=== PATIENT | male | born 1980 | race Caucasian/White ===

== ENCOUNTER 2019-12-26 13:26 | Inpatient (IN) | payer MEDICAID, OTHER ==
[~2019-12-26] VITALS: Ht 177.8 cm; Wt 95.3 kg
[~2019-12-26 13:26] MED LIST: BACI30OI6 TP; BUPR-47 PO; FLUO-191 PO; GABA-533 PO; HALO10 PO; NALT50TA PO; TRIA15CR49 TP; TRIH2TAB3 PO
[2019-12-26] MEDS ORDERED: PRAZ1 PO (13:57)
[2019-12-26] MEDS ORDERED: BUSP10TA23 PO (13:57)
[2019-12-26] MEDS ORDERED: BUPR8TAB4 SL (13:57)
[2019-12-26] MEDS ORDERED: OLAN10TA3 PO (13:57)
[2019-12-26 14:40] LABS: AMPHET/METH SCREEN,URINE NEGATIVE (NEGATIVE); BARBITURATE SCREEN, URINE NEGATIVE (NEGATIVE); BENZODIAZEPINES SCREEN,URINE NEGATIVE (NEGATIVE); CANNABINOID SCREEN,URINE NEGATIVE (NEGATIVE); COCAINE SCREEN,URINE NEGATIVE (NEGATIVE); METHADONE SCREEN, URINE NEGATIVE (NEGATIVE); OPIATE SCREEN,URINE NEGATIVE (NEGATIVE)
[2019-12-26 14:41] LABS: PHENCYCLIDINE SCREEN,URINE NEGATIVE (NEGATIVE)
[2019-12-26 14:44] LABS: BASOPHILS % (AUTO) 1.1 % (0.0-2.0); EOSINOPHILS % (AUTO) 2.9 % (1.0-6.0); HEMATOCRIT 43.6 % (41-53); HEMOGLOBIN 14.9 g/dL (13.5-17.5); LYMPHOCYTES # (AUTO) 3.2 K/uL (1.0-4.8); LYMPHOCYTES % (AUTO) 36.6 % (22.0-44.0); MEAN CORPUSCULAR HEMOGLOBIN 30.5 pg (26.0-34.0); MEAN CORPUSCULAR HGB CONC 34.1 G/dL (31.0-37.0); MEAN CORPUSCULAR VOLUME 89 fL (80-100); MONOCYTES % (AUTO) 11.6 % (2.0-9.0); NEUTROPHILS # (AUTO) 4.2 K/uL (1.8-7.7); NEUTROPHILS % (AUTO) 47.8 % (40.0-70.0); PLATELET COUNT (AUTO) 219 K/uL (150-450); RED BLOOD CELL COUNT(AUTO) 4.88 MIL/uL (4.50-5.90)
[2019-12-26 14:53] LABS: ANION GAP 13 mmol/L (8-16); CALCIUM, TOTAL 9.2 mg/dL (8.8-10.5); CARBON DIOXIDE 25 mmol/L (22-29); CHLORIDE 101 mmol/L (98-107); GLOMERULAR FILTR. RATE CALC > 60 mL/min (>60); GLUCOSE,RANDOM 141 mg/dL (70-110); POTASSIUM 3.7 mmol/L (3.5-5.1); SODIUM SERUM 139 mmol/L (136-145); UREA NITROGEN, BLOOD 12 mg/dL (7-18)
[2019-12-26 14:55] LABS: SALICYLATE 1.1 mg/dL (2.8-20.0)
[2019-12-26 14:56] LABS: ACETAMINOPHEN < 2 mcg/mL (10-30)
[2019-12-26] MEDS ORDERED: MAGNESIUM HYDROXIDE SUSPENSION 30 ML UDCUP PO PRN (15:30)
[2019-12-26] MEDS ORDERED: MAG HYDROX/AL HYDROX/SIMETH ES 30 ML SUSPENSION UDCUP PO PRN ×2 (15:30→19:30)
[2019-12-26] MEDS ORDERED: OLANZapine 5 MG RAPDIS TABLET PO PRN (15:30)
[2019-12-26] MEDS ORDERED: HydrOXYzine PAMOATE 50 MG CAPSULE PO PRN ×2 (15:30→19:30)
[2019-12-26] MEDS ORDERED: ACETAMINOPHEN 325 MG TABLET PO PRN (15:30)
[2019-12-26] MEDS ORDERED: LOPERAMIDE HCL 2 MG CAPSULE PO PRN (15:30)
[2019-12-26] MEDS ORDERED: TUBERCULIN, PURIFIED PROTEIN DERIVATIVE 5 TU/0.1 ML SYRINGE ID ONE (15:30)
[2019-12-26] MEDS ORDERED: PROMETHAZINE HCL 25 MG TABLET PO PRN (15:30)
[2019-12-26] MEDS ORDERED: GuaiFENesin/D-METHORPHAN [SUGAR-FREE] 200-20MG/10 ML SYRUP UDCUP PO PRN (15:30)
[2019-12-26] MEDS ORDERED: GABA-533 PO (15:49)
[2019-12-26] MEDS ORDERED: FLUO-191 PO (15:49)
[2019-12-26 18:17] VITALS: BP 143/76
[2019-12-26 18:22] VITALS: BP 143/76
[2019-12-26] MEDS: THIAMINE 100 MG TABLET PO SCH (18:27)
[2019-12-26] MEDS: LORazepam 2 MG TABLET PO PRN (18:27)
[2019-12-26] MEDS: BusPIRone HCL 10 MG TABLET PO SCH (18:27)
[2019-12-26] MEDS ORDERED: IBUPROFEN 600 MG TABLET PO PRN (19:30)
[2019-12-26] MEDS ORDERED: CloNIDine HCL 0.1 MG TABLET PO PRN (19:30)
[2019-12-26] MEDS: PRAZOSIN HCL 1 MG CAPSULE PO SCH (20:05)
[2019-12-26] MEDS: OLANZapine 5 MG RAPDIS TABLET PO SCH (20:05)
[2019-12-26] MEDS: ZOLPIDEM TARTRATE 10 MG TABLET PO PRN (20:05)
[2019-12-26] MEDS: CloNIDine HCL 0.1 MG TABLET PO SCH (21:02)
[2019-12-27] MEDS: CloNIDine HCL 0.1 MG TABLET PO SCH ×4 (05:43→20:51)
[2019-12-27] MEDS: LORazepam 2 MG TABLET PO PRN ×4 (05:48→20:30)
[2019-12-27 06:29] VITALS: BP 132/74
[2019-12-27] MEDS: DISULFIRAM 250 MG TABLET PO SCH (08:13)
[2019-12-27] MEDS: THIAMINE 100 MG TABLET PO SCH ×2 (08:13→16:00)
[2019-12-27] MEDS: FOLIC ACID 1 MG TABLET PO SCH (08:14)
[2019-12-27] MEDS: BusPIRone HCL 10 MG TABLET PO SCH ×3 (08:14→16:00)
[2019-12-27] MEDS: MULTIVITAMINS WITH MINERALS, THERAPEUTIC TABLET PO SCH (08:14)
[2019-12-27 08:23] VITALS: BP 117/64
[2019-12-27 08:44] LABS: FREE T4 (FREE THYROXINE) 0.84 ng/dL (0.76-1.46); THYROID STIMULATING HORMONE 4.35 uIU/mL (0.36-3.74)
[2019-12-27 08:45] LABS: HEMOGLOBIN A1C 5.7 % (3.8-5.6)
[2019-12-27] MEDS: GABAPENTIN 400 MG CAPSULE PO SCH ×2 (16:00→20:51)
[2019-12-27 16:02] VITALS: BP 117/68
[2019-12-27] MEDS: PRAZOSIN HCL 1 MG CAPSULE PO SCH (20:51)
[2019-12-27] MEDS: OLANZapine 5 MG RAPDIS TABLET PO SCH (20:51)
[2019-12-27] MEDS: ZOLPIDEM TARTRATE 10 MG TABLET PO PRN (20:51)
[2019-12-28 04:26] VITALS: BP 115/67
[2019-12-28] MEDS: CloNIDine HCL 0.1 MG TABLET PO SCH ×2 (05:33→12:09)
[2019-12-28] MEDS: LORazepam 2 MG TABLET PO PRN ×2 (07:11→12:09)
[2019-12-28 08:33] VITALS: BP 115/69
[2019-12-28] MEDS: BusPIRone HCL 10 MG TABLET PO SCH ×2 (08:34→12:09)
[2019-12-28] MEDS: DISULFIRAM 250 MG TABLET PO SCH (08:34)
[2019-12-28] MEDS: GABAPENTIN 400 MG CAPSULE PO SCH ×2 (08:35→12:09)
[2019-12-28] MEDS: FOLIC ACID 1 MG TABLET PO SCH (08:35)
[2019-12-28] MEDS: MULTIVITAMINS WITH MINERALS, THERAPEUTIC TABLET PO SCH (08:35)
[2019-12-28] MEDS: THIAMINE 100 MG TABLET PO SCH (08:35)
[2019-12-28] MEDS ORDERED: FLUoxetine HCL 20 MG CAPSULE PO SCH (09:00)
[2019-12-28] MEDS ORDERED: BUPRENORPHINE HCL/NALOXONE HCL 8-2 MG SUBLINGUAL TABLET SL SCH (11:15)
[2019-12-28] MEDS ORDERED: GABA-1201 PO (15:22)
[2019-12-28] MEDS ORDERED: BUSP10TA23 PO (15:22)
[2019-12-28] MEDS ORDERED: OLAN5TAB30 PO (15:22)
[2019-12-28] MEDS ORDERED: FLUO-191 PO (15:22)
[2019-12-28] MEDS ORDERED: DISU250 PO (15:22)
[2019-12-28] MEDS ORDERED: PRAZ1 PO (15:22)
[2019-12-28] MEDS ORDERED: CLON0.1T83 PO (16:32)
== END 2019-12-28 16:10 | disposition home or self-care (01) | DRG 885 ==
LOC: EMS 13:28 → B3A 17:49
PROVIDERS: ADMIT Psychiatry & Neurology Psychiatry; ATTEND Psychiatry & Neurology Psychiatry
DX: F25.1 Schizoaffective disorder, depressive type (principal); B19.20 Unspecified viral hepatitis C without hepatic coma; F11.20 Opioid dependence, uncomplicated; Z59.0 Homelessness; S61.512A Laceration without foreign body of left wrist, initial encounter; X78.8XXA Intentional self-harm by other sharp object, initial encounter; Y93.89 Activity, other specified; Y92.89 Other specified places as the place of occurrence of the external cause; Y99.8 Other external cause status; Z91.5 Personal history of self-harm; Z91.19 Patient's noncompliance with other medical treatment and regimen; F17.210 Nicotine dependence, cigarettes, uncomplicated; Z91.14 Patient's other noncompliance with medication regimen; I10 Essential (primary) hypertension; F41.9 Anxiety disorder, unspecified
CPT/HCPCS: 83036; 84439; 84443; 86592; G0480; G0481

== ENCOUNTER 2020-02-02 20:17 | Inpatient (IN) | payer MEDICAID ==
[~2020-02-02] VITALS: Ht 180.3 cm; Wt 89.2 kg
[~2020-02-02 20:17] MED LIST changes: -BACI30OI6 TP; -BUPR-47 PO; +BUSP10TA23 PO; +CLON0.1T83 PO; +DISU250 PO; +GABA-1201 PO; -GABA-533 PO; -HALO10 PO; -NALT50TA PO; +OLAN5TAB30 PO; +PRAZ1 PO; -TRIA15CR49 TP; -TRIH2TAB3 PO
[2020-02-02] MEDS ORDERED: GABA-1201 PO (20:53)
[2020-02-02] MEDS ORDERED: PRAZ1 PO (20:53)
[2020-02-02] MEDS ORDERED: BUSP10TA23 PO (20:53)
[2020-02-02] MEDS ORDERED: DISU500T PO (20:53)
[2020-02-02] MEDS ORDERED: FLUO-191 PO (20:53)
[2020-02-02] MEDS ORDERED: OLAN7.5T2 PO (20:53)
[2020-02-02] MEDS ORDERED: LORazepam 2 MG TABLET PO PRN (23:30)
[2020-02-02] MEDS ORDERED: ZOLPIDEM TARTRATE 10 MG TABLET PO PRN (23:30)
[2020-02-02] MEDS ORDERED: HALOPERIDOL 5 MG TABLET PO PRN (23:30)
[2020-02-03 00:36] VITALS: BP 129/62
[2020-02-03 08:16] LABS: APPEARANCE,URINE CLOUDY (CLEAR); BILIRUBIN,URINE NEGATIVE (NEGATIVE); GLUCOSE, URINE (UA) NEGATIVE (NEGATIVE); KETONES,URINE NEGATIVE (NEGATIVE); LEUKOCYTE ESTERASE ,URINE TRACE (NEGATIVE); NITRATE,URINE NEGATIVE (NEGATIVE); OCCULT BLOOD,URINE LARGE (NEGATIVE); PROTEIN,URINE SEE CONFIRM (NEGATIVE); UROBILINOGEN,URINE 0.2 mg/dL (<=1.0)
[2020-02-03 08:21] LABS: AMPHET/METH SCREEN,URINE NEGATIVE (NEGATIVE); BARBITURATE SCREEN, URINE NEGATIVE (NEGATIVE); BENZODIAZEPINES SCREEN,URINE NEGATIVE (NEGATIVE); CANNABINOID SCREEN,URINE NEGATIVE (NEGATIVE); COCAINE SCREEN,URINE NEGATIVE (NEGATIVE); METHADONE SCREEN, URINE NEGATIVE (NEGATIVE); OPIATE SCREEN,URINE POSITIVE (NEGATIVE)
[2020-02-03 08:24] LABS: PHENCYCLIDINE SCREEN,URINE NEGATIVE (NEGATIVE)
[2020-02-03 08:51] LABS: SULFOSALICYLIC ACID,URINE 3+ (Negative)
[2020-02-03 08:53] LABS: BACTERIA,URINE Few /HPF (None Seen); SQUAMOUS EPITHELIAL CELL,UR Few /LPF (None Seen)
[2020-02-10] MEDS ORDERED: NALT50TA6 PO (15:52)
== END 2020-02-03 02:30 | disposition short-term general hospital (02) | DRG 750 ==
LOC: B2S 23:21
PROVIDERS: ADMIT Psychiatry & Neurology Psychiatry; ATTEND Psychiatry & Neurology Psychiatry
DX: F25.9 Schizoaffective disorder, unspecified (principal)
CPT/HCPCS: 80307; 87086

== ENCOUNTER 2020-02-13 10:58 | Observation (INO) | payer OTHER ==
[~2020-02-13] VITALS: Ht 170.2 cm; Wt 79.5 kg
[~2020-02-13 10:58] MED LIST changes: -DISU250 PO; +DISU500T PO; +NALT50TA6 PO; -OLAN5TAB30 PO; +OLAN7.5T2 PO
[2020-02-13 11:35] LABS: BASOPHILS % (AUTO) 0.4 % (0.0-2.0); EOSINOPHILS % (AUTO) 0.6 % (1.0-6.0); HEMATOCRIT 41.6 % (41-53); HEMOGLOBIN 14.2 g/dL (13.5-17.5); LYMPHOCYTES # (AUTO) 2.2 K/uL (1.0-4.8); LYMPHOCYTES % (AUTO) 24.3 % (22.0-44.0); MEAN CORPUSCULAR HEMOGLOBIN 30.6 pg (26.0-34.0); MEAN CORPUSCULAR HGB CONC 34.3 G/dL (31.0-37.0); MEAN CORPUSCULAR VOLUME 89 fL (80-100); MONOCYTES # (AUTO) 1.1 K/uL (0.1-1.0); MONOCYTES % (AUTO) 12.1 % (2.0-9.0); NEUTROPHILS # (AUTO) 5.7 K/uL (1.8-7.7); NEUTROPHILS % (AUTO) 62.6 % (40.0-70.0); PLATELET COUNT (AUTO) 258 K/uL (150-450); RED BLOOD CELL COUNT(AUTO) 4.65 MIL/uL (4.50-5.90); RED CELL DISTRIBUTION WIDTH 13.5 % (11.5-14.5)
[2020-02-13 11:55] LABS: ANION GAP 7 mmol/L (8-16); CALCIUM, TOTAL 9.1 mg/dL (8.8-10.5); CARBON DIOXIDE 28 mmol/L (22-29); CHLORIDE 102 mmol/L (98-107); CREATININE 0.93 mg/dL (0.60-1.30); GLOMERULAR FILTR. RATE CALC > 60 mL/min (>60); GLUCOSE,RANDOM 108 mg/dL (70-110); POTASSIUM 3.6 mmol/L (3.5-5.1); SODIUM SERUM 137 mmol/L (136-145); UREA NITROGEN, BLOOD 17 mg/dL (7-18)
[2020-02-13 11:59] LABS: ALANINE AMINOTRANSFERASE 91 U/L (12-78); ALBUMIN 3.3 g/dL (3.4-5.0); ALKALINE PHOSPHATASE 90 U/L (46-116); ASPARTATE AMINOTRANSFERASE 41 U/L (15-37); BILIRUBIN,TOTAL 0.7 mg/dL (0.1-1.0); TOTAL PROTEIN, SERUM 7.9 g/dL (6.4-8.2)
[2020-02-13] MEDS ORDERED: ACETAMINOPHEN 325 MG TABLET PO PRN (14:45)
[2020-02-13] MEDS ORDERED: 0.9% SODIUM CHLORIDE 10 ML SYRINGE IVP PRN (14:45)
[2020-02-13] MEDS ORDERED: ONDANSETRON HCL 4 MG/2 ML VIAL IVP PRN (14:45)
[2020-02-13] MEDS ORDERED: VANCOMYCIN HCL 1 GM/D5% WATER 200 ML IV ONE (14:45)
[2020-02-13] MEDS ORDERED: DOXYCYCLINE HYCLATE 100 MG TABLET PO ONE ×2 (15:15→21:00)
[2020-02-13 17:05] VITALS: BP 124/72
[2020-02-13] MEDS ORDERED: LORazepam 2 MG TABLET PO PRN (19:00)
[2020-02-13] MEDS ORDERED: OLANZapine 5 MG RAPDIS TABLET PO PRN (19:00)
[2020-02-13] MEDS: CloNIDine HCL 0.1 MG TABLET PO SCH (20:33)
[2020-02-13] MEDS: GABAPENTIN 300 MG CAPSULE PO SCH (20:33)
[2020-02-13] MEDS: BusPIRone HCL 10 MG TABLET PO SCH (20:33)
[2020-02-13 20:35] VITALS: BP 129/74
[2020-02-13] MEDS ORDERED: GABAPENTIN 400 MG CAPSULE PO SCH (21:00)
[2020-02-13] MEDS ORDERED: OLANZapine 5 MG RAPDIS TABLET PO SCH (21:00)
[2020-02-13] MEDS ORDERED: PRAZOSIN HCL 1 MG CAPSULE PO SCH (21:00)
[2020-02-13] MEDS ORDERED: OLANZapine 7.5 MG TABLET PO SCH (21:00)
[2020-02-14 00:11] VITALS: BP 129/59
[2020-02-14 08:16] VITALS: BP 112/71
[2020-02-14] MEDS: GABAPENTIN 300 MG CAPSULE PO SCH ×2 (08:19→13:53)
[2020-02-14] MEDS: CloNIDine HCL 0.1 MG TABLET PO SCH (08:19)
[2020-02-14] MEDS: BusPIRone HCL 10 MG TABLET PO SCH (08:20)
[2020-02-14] MEDS ORDERED: DISULFIRAM 250 MG TABLET PO SCH (09:00)
[2020-02-14] MEDS ORDERED: FLUoxetine HCL 20 MG CAPSULE PO SCH (09:00)
[2020-02-14] MEDS ORDERED: NALTREXONE HCL 50 MG TABLET PO SCH (09:00)
[2020-02-14] MEDS ORDERED: DULoxetine HCL 20 MG CAPSULE PO SCH (09:00)
[2020-02-14] MEDS ORDERED: GABA-1181 PO (14:48)
[2020-02-14] MEDS ORDERED: DULO20CA27 PO (14:48)
[2020-02-14] MEDS ORDERED: DOXY-354 PO (14:48)
[2020-02-14] MEDS ORDERED: OLAN5TAB30 PO (14:48)
== END 2020-02-14 16:45 | disposition home or self-care (01) ==
LOC: EMS 11:07 → INTOOBSV 15:17 → 6N 15:17 → 6S 15:17
PROVIDERS: ADMIT Hospitalist; ATTEND Hospitalist
DX: L02.413 Cutaneous abscess of right upper limb (principal); Z20.828 Contact with and (suspected) exposure to other viral communicable diseases; I10 Essential (primary) hypertension; J44.9 Chronic obstructive pulmonary disease, unspecified; F15.10 Other stimulant abuse, uncomplicated; F20.9 Schizophrenia, unspecified; R45.851 Suicidal ideations; F31.9 Bipolar disorder, unspecified; Z86.19 Personal history of other infectious and parasitic diseases; Z91.19 Patient's noncompliance with other medical treatment and regimen; Z87.891 Personal history of nicotine dependence
CPT/HCPCS: 36415; 80053; 83605; 85025; 87040; 87081; 87426; 96365; 99219 ×2; 99284; G0480; J3370; U0003